=== PATIENT | female | born 1995 | race Asian ===

== ENCOUNTER 2017-06-13 22:23 | Emergency (ER) | payer BC, SELFPAY ==
[2017-06-13 22:24] VITALS: BP 150/90; PULSE 101; RESP 18; TEMP 37.1; O2SAT 96; BMI 25.3
[2017-06-13 22:46] LABS: Mucous, Urine 0 SEEN /hpf (<or=2+)
[2017-06-13 22:50] LABS: Color, Urine Yellow (Yellow); Glucose, Dipstick Normal (Normal); Ketone-Dipstick Negative (Negative); Leukocyte Esterase-Dipstick 500 /ul (Negative); Nitrite-Dipstick Negative (Negative); Occult Blood-Urine 25 /ul (Negative); Protein-Dipstick Negative (Negative); Specific Gravity, Urine 1.005 (1.002-1.030); Urine Bilirubin Dipstick Negative (Negative); Urine Clarity Sl. Cloudy (Clear); Urine Urobilinogen Normal (Normal)
[2017-06-13 22:55] LABS: Internal QC Validated? YES +Cl - CLEAR BKGD; Pregnancy, Urine Negative Negative
[2017-06-13 22:58] LABS: Bacteria RARE /hpf (None Seen); Red Blood Cells-Urine 0-5 SEEN /hpf (0-5); Squamous Epithelial Cells - UA 0-5 SEEN /hpf (5-10); White Blood Cells 10-25 SEEN /hpf (0-5)
--- NOTE | 2017-06-13 23:02 | ED.VISSUMM ---
- ER Visit Summary Date of Service: 06/13/17 Chief Complaint: Urinary tract infection History of Present Illness: The patient is a 22 F who states that beginning last evening began have burning with urination and urinary frequency. No hematuria. No fevers chills vomiting or flank pain. She has a history of urinary tract infections but the last was over a year ago. Physical Examination: Afebrile vital signs stable Gen: Well-nourished well-developed Head: Normocephalic atraumatic Eyes: Perrl EOMI ENT: TMs clear no rhinorrhea moist mucous membranes Neck: Supple no lymphadenopathy no JVD nontender CVS: Regular rate rhythm no murmurs normal S1-S2 Respiratory: No distress clear to auscultation bilaterally chest nontender Abdomen: Soft nontender nondistended normal bowel sounds no masses Back: Nontender Extremity: Nontender no edema Skin: Normal color no rash Neuro: alert orientated ?3 CN II-XII intact normal strength sensation reflexes gait cerebellar Psych: Normal affect normal mood Test Results: Urinalysis showed 10-25 white cells and rare bacteria. test is negative. Emergency Department Course and Treatment: Urine culture was ordered. Patient will be started on Macrobid and Pyridium. She will follow-up at the [facility] if needed. Return if worsening. Impression: 1. Acute cystitis This note was generated with [employer] dictation software. It may contain incorrect words, spelling, and punctuation that were not noted in review of the chart prior to signing ED Disposition - Plan for ED Patient: Disposition: Home or Assisted Living Chief Complaint: Complaint Instructions: ED UTI Cystitis Female Prescriptions: Nitrofurantoin Macrocrystals [Macrobid] 100 mg PO Q12 #10 cap Phenazopyridine HCl [Pyridium] 200 mg PO TID #10 tab Referrals: [facility] [GROUP OF PHYSICIANS] - As Needed
--- NOTE | 2017-06-13 23:06 | ED.DCSUM_ITS ---
- ER Visit Summary Date of Service: 06/13/17 Chief Complaint: Urinary tract infection History of Present Illness: The patient is a 22 F who states that beginning last evening began have burning with urination and urinary frequency. No hematuria. No fevers chills vomiting or flank pain. She has a history of urinary tract infections but the last was over a year ago. Physical Examination: Afebrile vital signs stable Gen: Well-nourished well-developed Head: Normocephalic atraumatic Eyes: Perrl EOMI ENT: TMs clear no rhinorrhea moist mucous membranes Neck: Supple no lymphadenopathy no JVD nontender CVS: Regular rate rhythm no murmurs normal S1-S2 Respiratory: No distress clear to auscultation bilaterally chest nontender Abdomen: Soft nontender nondistended normal bowel sounds no masses Back: Nontender Extremity: Nontender no edema Skin: Normal color no rash Neuro: alert orientated ?3 CN II-XII intact normal strength sensation reflexes gait cerebellar Psych: Normal affect normal mood Test Results: Urinalysis showed 10-25 white cells and rare bacteria. test is negative. Emergency Department Course and Treatment: Urine culture was ordered. Patient will be started on Macrobid and Pyridium. She will follow-up at the [facility] if needed. Return if worsening. Impression: 1. Acute cystitis This note was generated with [employer] dictation software. It may contain incorrect words, spelling, and punctuation that were not noted in review of the chart prior to signing ED Disposition - Plan for ED Patient: Disposition: Home or Assisted Living Chief Complaint: Complaint Instructions: ED UTI Cystitis Female Prescriptions: Nitrofurantoin Macrocrystals [Macrobid] 100 mg PO Q12 #10 cap Phenazopyridine HCl [Pyridium] 200 mg PO TID #10 tab Referrals: [facility] [GROUP OF PHYSICIANS] - As Needed
[2017-06-13] MEDS: Phenazopyridine 95 MG Tablet 190 MG PO (23:23)
[2017-06-13] MEDS: Nitrofurantoin Macrocrystals 100 MG Capsule PO (23:23)
[2017-06-13 23:25] VITALS: PULSE 74; RESP 16; O2SAT 99
--- NOTE | 2017-06-13 23:26 | ED.RN ---
THIS NURSE REVIEWED D/C INSTRUCTIONS WITH PT. PT VERBALIZED UNDERSTANDING OF INSTRUCTIONS. PT DENIES FURTHER NEEDS OR QUESTIONS AT THIS TIME. PT AMBULATES FROM ROOM ON OWN WITHOUT ASSISTANCE FROM STAFF
== END 2017-06-13 23:26 | disposition home or self-care (01) ==
PROVIDERS: Emergency Provider Emergency Medicine
DX: N30.00 Acute cystitis without hematuria (principal); Z87.440 Personal history of urinary (tract) infections; F41.9 Anxiety disorder, unspecified
CPT/HCPCS: 81001; 81025; 87077; 87086; 87088; 87186; 99283

== ENCOUNTER 2017-06-18 17:24 | Emergency (ER) | payer BC, SELFPAY ==
[2017-06-18 17:26] VITALS: BP 150/92; PULSE 101; RESP 16; TEMP 36; O2SAT 98; BMI 24.7
[2017-06-18 19:21] LABS: Mucous, Urine 0 SEEN /hpf (<or=2+); Red Blood Cells-Urine 0 SEEN /hpf (0-5)
[2017-06-18 19:25] LABS: Color, Urine AMBER (Yellow); Glucose, Dipstick Normal (Normal); Urine Clarity Cloudy (Clear)
[2017-06-18 19:26] LABS: Ketone-Dipstick 50 mg/dl (Negative); Leukocyte Esterase-Dipstick NEGATIVE /ul (Negative); Nitrite-Dipstick POSITIVE (Negative); Occult Blood-Urine NEGATIVE /ul (Negative); Protein-Dipstick 30 mg/dl (Negative); Specific Gravity, Urine 1.015 (1.002-1.030); Urine Bilirubin Dipstick 6 mg/dL (Negative); Urine Urobilinogen 12 mg/dl (Normal)
[2017-06-18 19:28] LABS: Internal QC Validated? YES +Cl - CLEAR BKGD; Pregnancy, Urine Negative Negative
--- NOTE | 2017-06-18 19:37 | ED.DCSUM_ITS ---
- ER Visit Summary Date of Service: 06/18/17 Chief Complaint: [] Dysuria History of Present Illness: The patient is a 22 F [] complaining of dysuria for the last few days. She reports she was seen several days ago and placed on Macrobid for 5 days. She reports her symptoms improved after she was taking up and then slowly return to their baseline level after the prescription was completed. Denies vaginal discharge. No other complaints at this time. Physical Examination: [] Afebrile, vital signs stable. Abdomen is soft and nontender. No supra pubic tenderness. Test Results: [] Urinalysis positive for nitrates. Otherwise negative. Urine hCG is negative. Emergency Department Course and Treatment: [] Patient given 1 Bactrim tablet in the emergency department as well as provided for Bactrim DS No. 6. She was encouraged to follow-up with her primary care physician. Treatment Plan: [] Follow-up with PCP. Disposition: [] Discharge, stable. Impression: [] UTI This note was generated with [employer] dictation software. It may contain incorrect words, spelling, and punctuation that were not noted in review of the chart prior to signing ED Disposition - Plan for ED Patient: Chief Complaint: Complaint Referrals: Care Physician,No Primary [Primary Care Provider] -
--- NOTE | 2017-06-18 19:37 | ED.DEP ---
ED Disposition - Plan for ED Patient: Disposition: Home or Assisted Living Chief Complaint: Complaint Instructions: ED UTI Cystitis Female Prescriptions: Sulfamethoxazole/Trimethoprim [Bactrim Ds Tablet] 1 ea PO BID #6 tab Referrals: Care Physician,No Primary [Primary Care Provider] -
[2017-06-18] MEDS: Smz/Tmp Ds Tablet 1 TABLET PO (19:42)
--- NOTE | 2017-06-18 19:44 | ED.RN ---
DISCHARGE INSTRUCTIONS GIVEN TO AND REVIEWED WITH PATIENT, PATIENT DENIES QUESTIONS OR CONCERNS AND VOICE UNDERSTANDING OF DISCHARGE INSTRUCTIONS. PT AMBULATES OUT OF ROOM WITHOUT DIFFICULTY.
[2017-06-18 19:50] LABS: Squamous Epithelial Cells - UA 0-5 SEEN /hpf (5-10)
[2017-06-18 19:52] LABS: White Blood Cells 0-5 SEEN /hpf (0-5)
[2017-06-18 19:53] LABS: Bacteria RARE /hpf (None Seen)
== END 2017-06-18 19:45 | disposition home or self-care (01) ==
PROVIDERS: Emergency Provider Emergency Medicine
DX: N39.0 Urinary tract infection, site not specified (principal); F32.9 Major depressive disorder, single episode, unspecified; F41.9 Anxiety disorder, unspecified; Z79.899 Other long term (current) drug therapy
CPT/HCPCS: 81001; 81025; 99283

== ENCOUNTER 2017-12-04 23:51 | Emergency (ER) | payer OTHER, BC, SELFPAY ==
[2017-12-04 23:53] VITALS: BP 148/94; PULSE 111; RESP 14; TEMP 36.2; O2SAT 95; BMI 27.4
--- NOTE | 2017-12-04 23:59 | RAD_ITS ---
STUDY: X-RAY - LEFT WRIST REASON FOR EXAM: Female, 22 years old. Fall onto wrist TECHNIQUE: 3 view(s) of the wrist were obtained. COMPARISON: None. FINDINGS: Normal visualized distal radius and ulna. Normal radiocarpal articulation. Normal distal radioulnar articulation. Normal carpal bones. Normal carpal articulations. Normal carpometacarpal articulation of the thumb. Normal second through fifth carpometacarpal articulations. Normal visualized metacarpal bones. The soft tissue structures are unremarkable. RAD/Wrist min 3 Views IMPRESSION: Normal x-ray examination of the wrist. Electronically Signed: Destini Merino MD at 1:11 EDT , Service support ,
--- NOTE | 2017-12-05 00:21 | ED.DCSUM_ITS ---
- ER Visit Summary Date of Service: 12/05/17 Chief Complaint: Fall and left wrist pain History of Present Illness: The patient is a 22 F no significant past medical history of anxiety. She lost her balance and fell injuring her left wrist around 9 PM tonight. She has previously broken her left wrist is a small child had a casted but is never needed surgery on that hand. She denies any other injuries. She is right-hand dominant. Physical Examination: Well-appearing young female. Vital signs are stable afebrile. H EENT exam atraumatic. Pupils round reactive light. C-spine nontender. Trachea midline. Lungs clear to auscultation bilaterally. Chest wall nontender. Heart regular rhythm rate about 100 no murmur soft nontender. Normal bowel sounds no peritoneal signs. Pelvic girdle intact. She is moving all 4 extremities. They are neurovascularly intact. Specifically left shoulder and elbow are nontender normal range of motion. She has mild tenderness of the distal radius of the left wrist. No significant swelling. No bony deformity. She is able to do flexion extension ulnar and radial deviation at the wrist. She has normal radial pulse. There is no significant swelling. She has full flexion-extension all digits of the left hand. She can open and close left hand without difficulty. She does have palpable radial pulse. Normal cap refill and touch sensation all digits of the hand. Back nontender. Neurologic exam no focal motor deficits. Test Results: Three-view x-ray left wrist read by myself shows no acute abnormality. No fracture nor dislocation. Emergency Department Course and Treatment: Patient will be treated as a left wrist sprain. Treatment Plan: Ice and elevate. Ibuprofen for pain. Follow-up if not improving. She has a wrist splint with her. Disposition: Discharge Impression: Fall with left wrist sprain This note was generated with [employer] dictation software. It may contain incorrect words, spelling, and punctuation that were not noted in review of the chart prior to signing ED Disposition - Plan for ED Patient: Chief Complaint: Upper Extremity Injury Referrals: Care Physician,No Primary [Primary Care Provider] -
--- NOTE | 2017-12-05 00:21 | ED.DEP ---
ED Disposition - Plan for ED Patient: Disposition: Home or Assisted Living Chief Complaint: Upper Extremity Injury Instructions: ED Sprain Wrist Referrals: Anahy Kirk DO [STAFF PHYSICIAN] - 10-14 Days if not better Additional Instructions: Ice and elevate Ibuprofen for pain and inflammation. Follow-up with not improving.
--- NOTE | 2017-12-05 00:33 | ED.RN ---
pt given written and verbal discharge instructions and verbalizes understanding. pt denies any further questions.
== END 2017-12-05 00:35 | disposition home or self-care (01) ==
PROVIDERS: Emergency Provider Emergency Medicine
DX: S63.502A Unspecified sprain of left wrist, initial encounter (principal); W19.XXXA Unspecified fall, initial encounter; Y93.9 Activity, unspecified; Y92.9 Unspecified place or not applicable; Y99.9 Unspecified external cause status; F32.9 Major depressive disorder, single episode, unspecified; F41.9 Anxiety disorder, unspecified; Z72.0 Tobacco use; Z79.899 Other long term (current) drug therapy
CPT/HCPCS: 73110; 99282

== ENCOUNTER → 2018-08-02 12:21 | Outpatient (CLI) | payer OTHER, SELFPAY ==
[2018-08-02 14:11] LABS: Absolute Lymphocyte Count 3.13 X10^3/ul (0.83-4.51); Absolute Neutrophil Count 3.5 X10^3/uL (2.0-7.7); Basophil# 0.03 X10^3/uL; Basophil% 0.4 % (0-1); Eosinophil# 0.25 X10^3/uL; Eosinophils% 3.4 % (0-5); Hematocrit 40.7 % (37-47); Hemoglobin 13.3 g/dl (12.0-15.0); Lymphocyte # 3.13 X10^3/ul (4.0); Lymphocyte % 42.5 % (19-41); Mean Corp Hgb Conc 32.7 g/gl (32-36); Mean Corpuscular Hgb 28.8 pg (27.0-32.0); Mean Corpuscular Volume 88.1 fL (81-99); Mean Platelet Vol. 10.4 fl (6.2-12.0); Monocyte% 5.4 % (0-10); Neutrophil # 3.53 X10^3/uL (2.7-7.7); Platelet Count 411 K/mm3 (150-450); RBC Distribution Width CV 12.6 % (11.6-14.6); RBC Distribution Width SD 40.3 fl (35.1-43.9); Red Blood Count 4.62 M/mm3 (4.2-5.4); White Blood Count 7.4 K/mm3 (4.4-11.0)
[2018-08-02 14:14] LABS: POSITIVE COUNT NO; POSITIVE DIFFERENTIAL NO; POSITIVE MORPHOLOGY NO
[2018-08-02 14:27] LABS: ALB/GLOB Ratio 0.8 RATIO (0.9-2.4); AST(SGOT) 29 U/L (15-37); Alanine Aminotransfer ALT/SGPT 33 U/L (13-56); Albumin, Serum 3.8 g/dL (3.2-5.0); Alkaline Phosphatase 93 U/L (45-117); Anion Gap 5 (5-15); BUN 9 mg/dL (7-18); Calcium,Total 9.3 mg/dL (8.5-10.1); Chloride 102 mmol/L (98-107); Cholesterol 225 mg/dL (200); Creatinine, Serum 0.75 mg/dL (0.55-1.02); EST Glomerular Filtration Rate 102 mL/min (>60); Est Glom Filt Rate - Afr Amer 123 mL/min (>60); Globulin 4.5 g/dL (2.2-4.2); Glucose 79 mg/dL (74-106); High Density Lipoprotein 51 mg/dL; Potassium 4.3 mmol/L (3.5-5.1); Protein, Total 8.3 g/dL (6.4-8.2); Sodium Level 136 mmol/L (136-145); T4 Free Direct 0.88 ng/dL (0.76-1.46); Thyroid Stim Hormone (TSH) 0.76 uIU/mL (0.358-3.74); Triglycerides 279 mg/dL; Very Low Density Lipoprotein 56 mg/dL (5-40)
[2018-08-02 14:28] LABS: Vitamin B12 503 pg/mL (211-911)
== END ==
PROVIDERS: Family Provider Family Medicine; PCP Family Medicine; Referring Provider Family Medicine; Visit Provider Family Medicine
DX: E78.1 Pure hyperglyceridemia (principal); R53.83 Other fatigue
CPT/HCPCS: 36415; 80053; 80061; 82306; 82607; 84439; 84443; 85025